=== PATIENT | female | born 1990 | race Caucasian/White ===

== ENCOUNTER 2019-03-31 21:21 | Emergency (ER) | payer OTHER ==
--- NOTE | 2019-03-31 21:49 | RAD ---
Right foot 3 views HISTORY: Right foot injury. FINDINGS: Lisfranc joint alignment is anatomic. Pes planus on the lateral view. Comminuted nondisplaced fracture of the medial head of the proximal phalanx big toe is present with m inimally distracted sagittally oriented component of the fracture into the midportion of the head of the proximal phalanx. IMPRESSION: Right big toe fracture.
== END 2019-03-31 22:32 | disposition home or self-care (01) ==
LOC: ERS 21:21
DX: S92.414A Nondisplaced fracture of proximal phalanx of right great toe, initial encounter for closed fracture (principal); W54.1XXA Struck by dog, initial encounter